=== PATIENT | male | born 1945 | race African-American/Black ===

== ENCOUNTER 2017-01-16 08:49 | Emergency (ER) | payer MEDICARE, OTHER ==
[~2017-01-16] VITALS: Ht 185.4 cm; Wt 86.0 kg
[2017-01-16 09:10] VITALS: BP 174/71
[2017-01-16] MEDS ORDERED: BACITRACIN ZINC OINT UDPKT TOP ONE (10:00)
== END 2017-01-16 11:29 | disposition home or self-care (01) ==
LOC: ER 08:50
DX: S81.812A Laceration without foreign body, left lower leg, initial encounter (principal); L03.116 Cellulitis of left lower limb; W22.8XXA Striking against or struck by other objects, initial encounter; Y93.89 Activity, other specified; Y92.89 Other specified places as the place of occurrence of the external cause; R03.0 Elevated blood-pressure reading, without diagnosis of hypertension
CPT/HCPCS: 73590; 99284

== ENCOUNTER 2018-06-19 16:39 | Emergency (ER) | payer MEDICARE, OTHER ==
[~2018-06-19] VITALS: Ht 177.8 cm; Wt 80.0 kg
[2018-06-19] MEDS ORDERED: CLONIDINE 0.2MG TABLET PO ONE (17:15)
[2018-06-19] MEDS ORDERED: ASPIRIN 81MG TABLET PO ONE (17:15)
[2018-06-19 17:47] LABS: BASOPHILS % 0.5 % (0.0-2.0); EOSINOPHILS % 1.1 % (0.0-5.0); HEMATOCRIT. 46.6 % (42.0-52.0); HEMOGLOBIN. 15.3 g/dL (14.0-18.0); LYMPHOCYTES % 36.2 % (20.0-50.0); MEAN CORPUSCULAR HEMOGLOBIN 27.9 pg (28.0-32.0); MEAN PLATELET VOLUME 8.3 fl (7.4-10.4); MONOCYTES % 11.5 % (2.0-8.0); NEUTROPHILS % 50.7 % (40.0-76.0); PLATELET 200 x1000/uL (130-400); RED BLOOD CELL COUNT 5.48 mill/uL (4.7-6.1)
[2018-06-19 17:55] LABS: CHLORIDE 106 mEq/L (98-107)
[2018-06-19 17:56] LABS: INR 1.1; PARTIAL THROMBOPLASTIN TIME 31.3 sec (23.4-31.0); PROTHROMBIN TIME 11.3 sec (9.1-11.1)
[2018-06-19 17:58] LABS: ETHANOL BLOOD < 10 mg/dL
[2018-06-20 01:38] VITALS: BP 173/92
[2018-06-20 05:51] LABS: CLARITY URINE CLEAR (CLEAR); COLOR URINE YELLOW (YELLOW); KETONES URINE NEGATIVE (NEGATIVE); LEUKOCYTE ESTERASE URINE NEGATIVE (NEGATIVE); NITRITE URINE NEGATIVE (NEGATIVE); OCCULT BLOOD URINE NEGATIVE (NEGATIVE); PROTEIN URINE NEGATIVE (NEGATIVE); SPECIFIC GRAVITY URINE 1.024 (1.005-1.030); UROBILINOGEN URINE 0.2 E.U./dL (0.2-1.0)
[2018-06-20 05:54] LABS: *AMPHETAMINES SCREEN URINE NEGATIVE (NEGATIVE); *BARBITURATES SCREEN URINE NEGATIVE (NEGATIVE); *BENZODIAZEPINES SCREEN URINE NEGATIVE (NEGATIVE); *COCAINE SCREEN URINE NEGATIVE (NEGATIVE); CANNABINOID URINE SCREEN PRESUMTIVE POSITIVE (NEGATIVE); METHADONE URINE SCREEN NEGATIVE (NEGATIVE); OPIATES URINE SCREEN NEGATIVE (NEGATIVE); PHENCYCLIDINE URINE SCREEN NEGATIVE (NEGATIVE)
== END 2018-06-20 01:42 | disposition home or self-care (01) ==
LOC: ER 16:39
DX: R00.2 Palpitations (principal); I25.2 Old myocardial infarction
CPT/HCPCS: 36415; 71045; 80053; 80305; 81003; 83880; 84443; 84484; 85025; 85610; 85730; 93005; 99285; G0482

== ENCOUNTER 2019-02-03 10:33 | Emergency (ER) | payer BC, MEDICAID ==
[~2019-02-03] VITALS: Ht 185.4 cm; Wt 82.0 kg
[2019-02-03] MEDS ORDERED: SODIUM CHLORIDE 0.9% 1,000 ML IV ONE (12:05)
[2019-02-03] MEDS ORDERED: ONDANSETRON HCL 4MG/2ML INJ IV STA (12:05)
[2019-02-03] MEDS ORDERED: MORPHINE SULFATE 4 MG/ML CPJ (NOT FOR IM USE) IV STA (12:05)
[2019-02-03] MEDS ORDERED: HYDRALAZINE 20MG/ML VIAL IV ONE (12:15)
[2019-02-03 12:31] LABS: BASOPHILS % 0.6 % (0.0-2.0); EOSINOPHILS % 2.5 % (0.0-5.0); HEMOGLOBIN. 12.8 g/dL (14.0-18.0); LYMPHOCYTES % 44.6 % (20.0-50.0); MEAN CORPUSCULAR HEMOGLOBIN 27.6 pg (28.0-32.0); MEAN CORPUSCULAR VOLUME 84.2 fL (80.0-94.0); MEAN PLATELET VOLUME 7.4 fl (7.4-10.4); MONOCYTES % 10.2 % (2.0-8.0); NEUTROPHILS % 42.1 % (40.0-76.0); PLATELET 197 x1000/uL (130-400); RED BLOOD CELL COUNT 4.63 mill/uL (4.7-6.1); RED CELL DISTRIBUTION WIDTH 14.4 % (11.6-14.6)
[2019-02-03 12:37] LABS: CHLORIDE 106 mEq/L (98-107)
[2019-02-03 12:38] LABS: INR 1.1; PARTIAL THROMBOPLASTIN TIME 29.9 sec (23.4-31.0); PROTHROMBIN TIME 11.1 sec (9.6-11.0)
[2019-02-03 15:08] LABS: CLARITY URINE CLEAR (CLEAR); COLOR URINE YELLOW (YELLOW); KETONES URINE NEGATIVE (NEGATIVE); LEUKOCYTE ESTERASE URINE NEGATIVE (NEGATIVE); NITRITE URINE NEGATIVE (NEGATIVE); OCCULT BLOOD URINE NEGATIVE (NEGATIVE); PH URINE 8.5 (4.5-8.0); PROTEIN URINE NEGATIVE (NEGATIVE); SPECIFIC GRAVITY URINE 1.007 (1.005-1.030); UROBILINOGEN URINE 0.2 E.U./dL (0.2-1.0)
[2019-02-03] MEDS ORDERED: CLONIDINE 0.2MG TABLET PO ONE (15:15)
[2019-02-03 17:11] VITALS: BP 123/60
== END 2019-02-03 17:13 | disposition home or self-care (01) ==
LOC: ER 10:33
DX: R60.0 Localized edema (principal); M54.5 Low back pain; I10 Essential (primary) hypertension; W01.198A Fall on same level from slipping, tripping and stumbling with subsequent striking against other object, initial encounter; Y93.89 Activity, other specified; Y92.012 Bathroom of single-family (private) house as the place of occurrence of the external cause; N28.1 Cyst of kidney, acquired; D17.71 Benign lipomatous neoplasm of kidney
CPT/HCPCS: 36415; 71045; 72100; 76705; 76770; 80053; 81003; 83880; 84484; 85025; 85610; 85730; 86850; 86900; 86901; 87086; 93005; 93970; 96374; 96375; 99284; J0360; J2270; J2405; J7030